=== PATIENT | female | born 1990 | race Caucasian/White ===

== ENCOUNTER 2016-10-02 06:37 | Emergency (ER) | payer OTHER ==
[2016-10-02 07:05] VITALS: BP 114/69; PULSE 103; O2SAT 96
[2016-10-02 07:18] LABS: BASOPHIL % 0.2 % (0.0-0.4); Eosinophil % 0.5 % (0.00-5.0); Granulocytes % 64.1 % (36.0-66.0); Lymphocytes % 24.2 % (24.0-44.0); Mean Corpuscular Hemoglobin 29.3 pg (26-32); Mean Platelet Volume 10.9 fl (6-9.5); Platelet Count 325 K/mm3 (150-450); Red Blood Count 4.67 M/mm3 (4.1-5.4); Red Cell Distribution Width 13.5 % (11.5-14.0); White Blood Count 12.7 K/mm3 (4.0-10.5)
[2016-10-02 07:19] LABS: Collection Type CCMS; Glucose NEGATIVE (NEGATIVE); Leukocyte Esterase TRACE (NEGATIVE)
[2016-10-02 07:20] LABS: Bilirubin NEGATIVE (NEGATIVE); Blood NEGATIVE Ery/ul (0-5); COMPLETE URINE MICROSCOPIC? YES
[2016-10-02 07:28] LABS: ADD URINE CULTURE? YES (NO); Bacteria MODERATE /HPF (NEGATIVE); Epithelial Cells MANY /HPF (FEW)
[2016-10-02 07:30] LABS: ALBUMIN 3.9 g/dL (3.4-5.0); ALKALINE PHOSPHATASE 77 U/L (46-116); ANION GAP 13.8 MEQ/L (5-15); BLOOD UREA NITROGEN 12 mg/dL (9-20); CHLORIDE 105 mEq/L (98-107); Carbon Dioxide 27.3 mEq/L (21-32); Glucose 105 MG/DL (70-110); Potassium 3.7 mEq/L (3.5-5.1); SGOT/AST 18 U/L (15-37); SGPT/ALT 22 U/L (12-78); SODIUM 142 mEq/L (136-145); Total Protein 7.9 gm/dL (6.4-8.2)
[2016-10-02] MEDS ORDERED: Pepcid 20 MG VIAL IV ONE ×2 (07:34→07:37)
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
== END 2016-10-02 07:55 | disposition home or self-care (01) ==
LOC: ED 06:37
DX: R10.9 Unspecified abdominal pain (principal); Y04.0XXA Assault by unarmed brawl or fight, initial encounter; Z32.02 Encounter for pregnancy test, result negative
CPT/HCPCS: 36000; 36415; 80053; 80307; 81000; 84703; 85025; 87086; 96374; 99284; G0481

== ENCOUNTER 2016-11-30 19:23 | Emergency (ER) | payer OTHER ==
--- NOTE | 2016-11-30 20:00 | ERPHSYRPT ---
- History of Present Illness Time Seen by Provider: 11/30/16 19:38 Historian: patient, family (MOM) Exam Limitations: no limitations Patient Subjective Stated Complaint: Pt sts vaginal bleeding since last night. Sts some red and mostly brown bleeding. Pt sts bleeding worse today. Has not had to use pads. Pt sts pain in upper stomach. Pt reports she is approx 9 weeks . LMP 10/22/16. Triage Nursing Assessment: Pt alert, oriented, answers all questions appropriately. Skin pink, warm, dry. Resps non-labored. Pt ambulatory to treatment room. Steady gait noted. Physician History: SINCE LAST NIGHT PT HAS HAD MILD VAGINAL BLEEDING WITH DIAPHORESIS. PT HAS HAD MID ABDOMINAL CRAMPING FOR THE PAST 5 DAYS. PT ALSO C/O INTERMITTENT SHORTNESS OF AIR, CHEST PAIN AND HEADACHES FOR THE PAST 2 YEARS. PT STATES SHE IS 8 WEEKS 5 DAYS ; DENIES PREVIOUS . Allergies/Adverse Reactions: amoxicillin [From Augmentin] Allergy (Verified 11/30/16 21:05) Cephalosporins Allergy (Verified 11/30/16 21:05) clavulanic acid [From Augmentin] Allergy (Verified 11/30/16 21:05) codeine Allergy (Verified 11/30/16 21:05) Iodinated Contrast- Oral and IV Dye [Iodinated Contrast Media - IV Dye] Allergy (Verified 11/30/16 21:05) strawberry Allergy (Verified 11/30/16 21:05) sulfamethoxazole [From Bactrim] Allergy (Verified 11/30/16 21:05) trimethoprim [From Bactrim] Allergy (Verified 11/30/16 21:05) cefaclor [From Ceclor] Adverse Reaction (Verified 11/30/16 21:05) ciprofloxacin [From Cipro] Adverse Reaction (Verified 11/30/16 21:05) Hx Tetanus, Diphtheria Vaccination/Date Given: Yes Hx Influenza Vaccination/Date Given: Yes Hx Pneumococcal Vaccination/Date Given: No Immunizations Up to Date: Yes - Review of Systems Respiratory: Dyspnea Cardiac: Chest Pain Abdominal/Gastrointestinal: Abdominal Pain Genitourinary Symptoms: , Vaginal Bleeding Neurological: Headache Endocrine: Excessive Sweating All Other Systems: Reviewed and Negative - Past Medical History Pertinent Past Medical History: Yes Psycho-Social History: Depression Other Medical History: personality disorder. mild MR - Past Surgical History Past Surgical History: Yes Other Surgical History: toes bilat. explor lap - Social History Smoking Status: Never smoker Exposure to second hand smoke: No Drug Use: none Patient Lives Alone: No - Nursing Vital Signs Nursing Vital Signs: Initial Vital Signs Pulse Rate 97 H 11/30/16 19:38 Respiratory Rate 18 11/30/16 19:38 Blood Pressure 132/67 11/30/16 19:38 O2 Sat by Pulse Oximetry 96 11/30/16 19:38 Pain Scale Pain Intensity 4 - Physical Exam General Appearance: alert Eye Exam: PERRL/EOMI Ears, Nose, Throat Exam: TMs normal, pharynx normal, moist mucous membranes Neck Exam: normal inspection Respiratory Exam: lungs clear Cardiovascular Exam: normal heart sounds Gastrointestinal/Abdomen Exam: soft, normal bowel sounds Back Exam: normal range of motion Extremity Exam: normal inspection Neurologic Exam: alert, cooperative Skin Exam: warm, dry SpO2 Interpretation: normal SpO2: 96 Oxygen Delivery: Room Air - Course Nursing assessment & vital signs reviewed: Yes - Radiology Ultrasound Exam OB Ultrasound: Other (TECH REPORT: 8 WEEKS; NO HEART BEAT.) Ordered Tests: Active Orders 24 hr Category Date Time Status Clean Catch Urine Specimen STAT Care 11/30/16 20:22 Active OB <14 WKS 1ST GESTATION [US] Stat Exams 11/30/16 21:09 Taken AMYLASE Stat Lab 11/30/16 20:05 Completed CBC W DIFF Stat Lab 11/30/16 20:05 Completed CMP Stat Lab 11/30/16 20:05 Completed CULTURE,URINE Stat Lab 11/30/16 20:05 Received HCG, Quantitative (Inhouse) Stat Lab 11/30/16 20:05 Completed LIPASE Stat Lab 11/30/16 20:05 Completed MAG [MAGNESIUM] Stat Lab 11/30/16 20:05 Completed PROTIME WITH INR Stat Lab 11/30/16 20:05 Completed PTT Stat Lab 11/30/16 20:05 Completed UA W/ MICROSCOPIC Stat Lab 11/30/16 20:05 Completed Urine Triage Profile Stat Lab 11/30/16 20:05 Completed Medication Summary Generic Name Dose Route Start Last Admin Trade Name Freq PRN Reason Stop Dose Admin Magnesium Oxide 400 mg 11/30/16 22:00 11/30/16 21:18 Mag-Ox 400 PO 12/30/16 21:59 400 mg BID SHANE Administration Discontinued Medications Generic Name Dose Route Start Last Admin Trade Name Freq PRN Reason Stop Dose Admin Nitrofurantoin Macrocrystals 100 mg 11/30/16 21:09 11/30/16 21:18 Macrobid 100mg Capsule PO 11/30/16 21:10 100 mg STAT ONE Administration Nitrofurantoin Macrocrystals Confirm 11/30/16 21:15 Macrobid 100mg Capsule Administered 11/30/16 21:16 Dose 100 mg .ROUTE .STK-MED ONE Lab/Rad Data: Laboratory Result Diagrams 11/30/16 20:05 11/30/16 20:05 Laboratory Results 11/30/16 11/30/16 11/30/16 Range/Units 20:05 20:05 20:05 WBC (4.0-10.5) K/mm3 RBC (4.1-5.4) M/mm3 Hgb (12.0-16.0) gm/dl Hct (35-47) % MCV (78-100) fl MCH (26-32) pg MCHC (32-36) g/dl RDW (11.5-14.0) % Plt Count (150-450) K/mm3 MPV (6-9.5) fl Gran % (36.0-66.0) % Lymphocytes % (24.0-44.0) % Monocytes % (0.0-12.0) % Eosinophils % (0.00-5.0) % Basophils % (0.0-0.4) % Basophils # (0-0.4) INR 1.08 (0.8-3.0) APTT 36.1 (25.3-37.0) SECONDS Sodium (136-145) mEq/L Potassium (3.5-5.1) mEq/L Chloride (98-107) mEq/L Carbon Dioxide (21-32) mEq/L Anion Gap (5-15) MEQ/L BUN (9-20) mg/dL Creatinine (0.55-1.30) mg/dl Estimated GFR ML/MIN Glucose (70-110) MG/DL Calcium (8.5-10.1) mg/dL Magnesium 1.7 L (1.8-2.4) mg/dL Total Bilirubin (0.2-1.0) mg/dL AST (15-37) U/L ALT (12-78) U/L Alkaline Phosphatase (46-116) U/L Serum Total Protein (6.4-8.2) gm/dL Albumin (3.4-5.0) g/dL Amylase (25-115) U/L Lipase (73-393) U/L Beta HCG, Quant 6033 H (0-6) IU/L Ur Collection Type Urine Color (YELLOW) Urine Appearance (CLEAR) Urine pH (5-6) Ur Specific [place] (1.005-1.025) Urine Protein (Negative) Urine Ketones (NEGATIVE) Urine Blood (0-5) Peter/ul Urine Nitrite (NEGATIVE) Urine Bilirubin (NEGATIVE) Urine Urobilinogen (0-1) mg/dL Ur Leukocyte Esterase (NEGATIVE) Urine Microscopic RBC (0-2) /HPF Urine Microscopic WBC (0-5) /HPF Ur Epithelial Cells (FEW) /HPF Urine Bacteria (NEGATIVE) /HPF Urine Mucus (NEGATIVE) /HPF Urine Glucose (NEGATIVE) mg/dL Urine Opiates Level NEG. (NEGATIVE) Ur Methadone NEG. (NEGATIVE) Urine Barbiturates NEG. (NEGATIVE) Ur Phencyclidine (PCP) NEG. (NEGATIVE) Urine Amphetamine NEG. (NEGATIVE) U Benzodiazepine Level NEG. (NEGATIVE) Urine Cocaine NEG. (NEGATIVE) Urine Marijuana (THC) NEG. (NEGATIVE) Specimen Received 11/30/16 11/30/16 11/30/16 Range/Units 20:05 20:05 20:05 WBC 10.3 (4.0-10.5) K/mm3 RBC 4.62 (4.1-5.4) M/mm3 Hgb 13.3 (12.0-16.0) gm/dl Hct 39.6 (35-47) % MCV 85.7 (78-100) fl MCH 28.8 (26-32) pg MCHC 33.6 (32-36) g/dl RDW 13.4 (11.5-14.0) % Plt Count 274 (150-450) K/mm3 MPV 10.7 H (6-9.5) fl Gran % 70.0 H (36.0-66.0) % Lymphocytes % 20.3 L (24.0-44.0) % Monocytes % 7.7 (0.0-12.0) % Eosinophils % 1.7 (0.00-5.0) % Basophils % 0.3 (0.0-0.4) % Basophils # 0.03 (0-0.4) INR (0.8-3.0) APTT (25.3-37.0) SECONDS Sodium 142 (136-145) mEq/L Potassium 3.9 (3.5-5.1) mEq/L Chloride 105 (98-107) mEq/L Carbon Dioxide 26.9 (21-32) mEq/L Anion Gap 13.6 (5-15) MEQ/L BUN 8 L (9-20) mg/dL Creatinine 0.53 L (0.55-1.30) mg/dl Estimated GFR > 60 ML/MIN Glucose 91 (70-110) MG/DL Calcium 9.4 (8.5-10.1) mg/dL Magnesium (1.8-2.4) mg/dL Total Bilirubin 0.20 (0.2-1.0) mg/dL AST 29 (15-37) U/L ALT 29 (12-78) U/L Alkaline Phosphatase 80 (46-116) U/L Serum Total Protein 7.4 (6.4-8.2) gm/dL Albumin 3.5 (3.4-5.0) g/dL Amylase 40 (25-115) U/L Lipase 82 (73-393) U/L Beta HCG, Quant (0-6) IU/L Ur Collection Type VOID Urine Color YELLOW (YELLOW) Urine Appearance CLOUDY (CLEAR) Urine pH 6.0 (5-6) Ur Specific [place] 1.025 (1.005-1.025) Urine Protein TRACE (Negative) Urine Ketones NEGATIVE (NEGATIVE) Urine Blood 250 (0-5) Peter/ul Urine Nitrite NEGATIVE (NEGATIVE) Urine Bilirubin NEGATIVE (NEGATIVE) Urine Urobilinogen NORMAL (0-1) mg/dL Ur Leukocyte Esterase 2+ (NEGATIVE) Urine Microscopic RBC 5-10 (0-2) /HPF Urine Microscopic WBC 50-100 (0-5) /HPF Ur Epithelial Cells MODERATE (FEW) /HPF Urine Bacteria MODERATE (NEGATIVE) /HPF Urine Mucus MODERATE (NEGATIVE) /HPF Urine Glucose NEGATIVE (NEGATIVE) mg/dL Urine Opiates Level (NEGATIVE) Ur Methadone (NEGATIVE) Urine Barbiturates (NEGATIVE) Ur Phencyclidine (PCP) (NEGATIVE) Urine Amphetamine (NEGATIVE) U Benzodiazepine Level (NEGATIVE) Urine Cocaine (NEGATIVE) Urine Marijuana (THC) (NEGATIVE) Specimen Received 11/30/162029 - Departure Time of Disposition: 22:16 Departure Disposition: Home Clinical Impression: DEMISE, MILD HYPOMAGNESEMIA, UTI Condition: Stable Critical Care Time: No Referrals: JASON STANFORD, CRAIG [Primary Care Provider] - Instructions: Threatened , Urinary Tract Infection (UTI) Additional Instructions: FOLLOW UP WITH OB DOCTOR TOMORROW. STRICT BED REST. Prescriptions: Nitrofurantoin Macro 100 mg [Macrobid 100MG Capsule] 100 mg PO BID #20 capsule
[2016-11-30 20:14] LABS: BASOPHIL % 0.3 % (0.0-0.4); Eosinophil % 1.7 % (0.00-5.0); Lymphocytes % 20.3 % (24.0-44.0); Mean Cell Volume 85.7 fl (78-100); Mean Corpuscular Hemoglobin 28.8 pg (26-32); Mean Platelet Volume 10.7 fl (6-9.5); Monocytes % 7.7 % (0.0-12.0); Platelet Count 274 K/mm3 (150-450); Red Blood Count 4.62 M/mm3 (4.1-5.4); Red Cell Distribution Width 13.4 % (11.5-14.0); White Blood Count 10.3 K/mm3 (4.0-10.5)
[2016-11-30 20:34] LABS: INR 1.08 (0.8-3.0)
[2016-11-30 20:36] LABS: PTT 36.1 SECONDS (25.3-37.0)
[2016-11-30 20:42] LABS: ALBUMIN 3.5 g/dL (3.4-5.0); ALKALINE PHOSPHATASE 80 U/L (46-116); ANION GAP 13.6 MEQ/L (5-15); BLOOD UREA NITROGEN 8 mg/dL (9-20); CHLORIDE 105 mEq/L (98-107); Carbon Dioxide 26.9 mEq/L (21-32); Glucose 91 MG/DL (70-110); LIPASE 82 U/L (73-393); Potassium 3.9 mEq/L (3.5-5.1); SGOT/AST 29 U/L (15-37); SODIUM 142 mEq/L (136-145); Total Protein 7.4 gm/dL (6.4-8.2)
[2016-11-30 20:55] LABS: SGPT/ALT 29 U/L (12-78)
[2016-11-30 20:56] LABS: Bilirubin NEGATIVE (NEGATIVE); Blood 250 Ery/ul (0-5); COMPLETE URINE MICROSCOPIC? YES; Collection Type VOID; Glucose NEGATIVE (NEGATIVE); Leukocyte Esterase 2+ (NEGATIVE); Mucus MODERATE /HPF (NEGATIVE)
[2016-11-30 20:57] LABS: ADD URINE CULTURE? YES (NO); Bacteria MODERATE /HPF (NEGATIVE); Epithelial Cells MODERATE /HPF (FEW); WBC 50-100 /HPF (0-5)
[2016-11-30 21:04] LABS: MAGNESIUM 1.7 mg/dL (1.8-2.4)
[2016-11-30] MEDS ORDERED: Macrobid 100MG Capsule PO ONE (21:09)
[2016-11-30] MEDS ORDERED: MAG-OX 400 ONE (21:15)
[2016-11-30] MEDS ORDERED: Macrobid 100MG Capsule ONE (21:15)
[2016-11-30] MEDS ORDERED: MAG-OX 400 PO SCH (22:00)
[2016-11-30] MEDS ORDERED: KLONOPIN PO ONE ×2 (22:30→22:40)
[2016-11-30 22:48] VITALS: BP 130/83; PULSE 76; O2SAT 98
--- NOTE | 2016-12-01 13:14 | XRAY ---
Exam: OB ultrasound less than 14 weeks from 11/30/2016. Comparison: None from this . Indication: with vaginal bleeding. Findings: Transabdominal sonogram images of the pelvis were obtained. The maternal uterus is anteflexed. A single intrauterine fetus is seen within a normal positioned gestational sac within the upper uterine segment. On some of the images the gestational sac has a mildly irregular contour. The crown-rump length measured 1.64 cm consistent with a gestational age of 8 weeks 0 days. No body motion or cardiac activity were identified. Specifically, no cardiac flash with color imaging or Doppler activity was seen within the region of the anticipated heart. cardiac activity should easily be seen by a gestational age of 8 weeks 0 days. The findings suggest intrauterine demise. Both maternal ovaries are identified and appear of unremarkable size, shape, and echogenicity. Normal Doppler signal is seen within both maternal ovaries. No free fluid is seen within the maternal pelvis. Impression: 1. 8 week 0 day single intrauterine with no body motion or cardiac activity. The findings are consistent with intrauterine demise. 2. Both maternal ovaries appear unremarkable. 3. No free intraperitoneal fluid is seen within the maternal pelvis.
== END 2016-11-30 22:48 | disposition home or self-care (01) ==
LOC: ED 19:23
DX: O02.1 Missed abortion (principal); E83.42 Hypomagnesemia; N39.0 Urinary tract infection, site not specified
CPT/HCPCS: 36415; 76801; 76815; 80053; 80307; 81000; 82150; 83690; 83735; 84702; 85025; 85610; 85730; 87086; 99284; A9270-GY

== ENCOUNTER 2017-11-17 19:45 | Emergency (ER) | payer OTHER ==
[2017-11-17 20:15] VITALS: BP 115/76; O2SAT 98
[2017-11-17] MEDS ORDERED: Bactroban OINTMENT TP ONE (20:29)
--- NOTE | 2017-11-17 20:34 | ERPHSYRPT ---
- History of Present Illness Time Seen by Provider: 11/17/17 20:30 Source: patient Exam Limitations: no limitations Patient Subjective Stated Complaint: pt is alert and oriented. pt is ambulatory. pt comes in with c/o cough, congestion, runny nose, nausea, and diarrhea. pt has a dry cough, states that she feels like she is coughing "something up and can't get it up". pt seems anxious and is talkative. pt bowel sounds present x4. pt states she went to the walk in clinic and they diagnosed her with a URI and was given a prescription for steroids but did not fill them because she "couldn't afford them". pt lung sounds clear bilat a-p throughout. Triage Nursing Assessment: see above Physician History: 27-year-old white female with history of mild mental retardation, anxiety, depression, personality disorder Arrives with complaint of cough congestion runny nose symptoms for a week. She states she has been using an inhaler secondary feeling short of breath. She states she saw a physician in [place] who prescribed steroids however she did not fill these because she could not afford them. She has no fevers. Past medical history includes anxiety, depression, personality disorder, mild mental retardation. Past surgical history includes exploratory laparoscopy EGD Social history occasional alcohol use Timing/Duration: week(s) Severity: moderate (1 week) Modifying Factors: Improves With: nothing Associated Symptoms: shortness of breath, cough, No nausea, No vomiting, No abdominal pain, No heartburn, No diaphoresis, No chills, No chest pain, No fever , No headaches, No loss of appetite, No malaise, No rash, No syncope, No seizure , No weakness (and are relieved to have) Allergies/Adverse Reactions: amoxicillin [From Augmentin] Allergy (Verified 11/30/16 21:05) Cephalosporins Allergy (Verified 11/30/16 21:05) clavulanic acid [From Augmentin] Allergy (Verified 11/30/16 21:05) codeine Allergy (Verified 11/30/16 21:05) Iodinated Contrast- Oral and IV Dye [Iodinated Contrast Media - IV Dye] Allergy (Verified 11/30/16 21:05) strawberry Allergy (Verified 11/30/16 21:05) sulfamethoxazole [From Bactrim] Allergy (Verified 11/30/16 21:05) trimethoprim [From Bactrim] Allergy (Verified 11/30/16 21:05) cefaclor [From Ceclor] Adverse Reaction (Verified 11/30/16 21:05) ciprofloxacin [From Cipro] Adverse Reaction (Verified 11/30/16 21:05) loratadine [From Claritin] Adverse Reaction (Verified 11/17/17 20:16) Home Medications: Clonazepam 1 mg PO BID 11/17/17 [History] Tramadol HCl 50 mg PO 11/17/17 [History] Hx Tetanus, Diphtheria Vaccination/Date Given: No Hx Influenza Vaccination/Date Given: Yes (2016) Hx Pneumococcal Vaccination/Date Given: No Immunizations Up to Date: Yes - Review of Systems Constitutional: No Fever, No Chills Eyes: No Symptoms Ears, Nose, & Throat: No Symptoms Respiratory: Cough, Dyspnea Cardiac: No Chest Pain, No Edema, No Syncope Abdominal/Gastrointestinal: No Abdominal Pain, No Nausea, No Vomiting, No Diarrhea Genitourinary Symptoms: No Symptoms Musculoskeletal: No Back Pain, No Neck Pain Skin: Other (patient with an erythematous area on her nose and upper lip) Neurological: No Dizziness, No Focal Weakness, No Sensory Changes Psychological: No Symptoms Endocrine: No Symptoms All Other Systems: Reviewed and Negative - Past Medical History Pertinent Past Medical History: Yes Psycho-Social History: Anxiety, Depression Other Medical History: personality disorder. mild MR - Past Surgical History Past Surgical History: Yes Neuro Surgical History: No Pertinent History Cardiac: No Pertinent History Respiratory: No Pertinent History Gastrointestinal: No Pertinent History Genitourinary: No Pertinent History Musculoskeletal: No Pertinent History Female Surgical History: No Pertinent History Other Surgical History: toes bilat. explor lap. EGD - Social History Smoking Status: Never smoker Exposure to second hand smoke: Yes Drug Use: none Patient Lives Alone: No - Female History Hx Now: No - Nursing Vital Signs Nursing Vital Signs: Initial Vital Signs Temperature 98.7 F 11/17/17 19:45 Pulse Rate 95 H 11/17/17 19:45 Respiratory Rate 16 11/17/17 19:45 Blood Pressure 115/76 11/17/17 19:45 O2 Sat by Pulse Oximetry 98 11/17/17 19:45 Pain Scale Pain Intensity 6 - Physical Exam General Appearance: no apparent distress Eye Exam: PERRL/EOMI, eyes nml inspection Ears, Nose, Throat Exam: other (erythematous area on her right nose and upper lip) Neck Exam: normal inspection, non-tender, supple, full range of motion Respiratory Exam: normal breath sounds, lungs clear, No respiratory distress Cardiovascular Exam: regular rate/rhythm, normal heart sounds, normal peripheral pulses Gastrointestinal/Abdomen Exam: soft, normal bowel sounds, No tenderness, No mass Back Exam: normal inspection, normal range of motion, No CVA tenderness, No vertebral tenderness Extremity Exam: normal inspection, normal range of motion, pelvis stable Neurologic Exam: alert, oriented x 3, cooperative, 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 nml as tested, normal mood/affect, nml cerebellar function, nml station & gait, sensation nml, No motor deficits Skin Exam: other (erythematous areacon right side of the disal nose and upper lip) Lymphatic Exam: No adenopathy SpO2 Interpretation: normal (98%) SpO2: 98 Oxygen Delivery: Room Air - Course Nursing assessment & vital signs reviewed: Yes - Radiology Exams Chest X-ray Interpretation: Interpreted by me (no acute disease process noted) Ordered Tests: Active Orders 24 hr Category Date Time Status CHEST 1 VIEW (PORTABLE) Stat Exams 11/17/17 20:51 Taken Medication Summary Discontinued Medications Generic Name Dose Route Start Last Admin Trade Name Freq PRN Reason Stop Dose Admin Azithromycin 500 mg 11/17/17 21:15 11/17/17 21:34 Zithromax 250 Mg Tablet PO 11/17/17 21:16 500 mg STAT ONE Administration Azithromycin Confirm 11/17/17 21:24 Zithromax 250 Mg Tablet Administered 11/17/17 21:25 Dose 500 mg .ROUTE .STK-MED ONE Mupirocin 22 gm 11/17/17 20:29 11/17/17 21:05 Bactroban Ointment TP 11/17/17 20:30 22 gm STAT ONE Administration Prednisone 60 mg 11/17/17 21:15 11/17/17 21:34 Deltasone 20 Mg PO 11/17/17 21:16 60 mg STAT ONE Administration Prednisone Confirm 11/17/17 21:24 Deltasone 20 Mg Administered 11/17/17 21:25 Dose 60 mg .ROUTE .STK-MED ONE - Progress Progress: improved Progress Note: 11/17/17 21:16 27-year-old female arrives with complaint of cough for a week nasal congestion she states she has been using an inhaler at home but continues to have cough shortness of breath. Patient appears to be stable here normal vital signs chest is essentially normal. Patient apparently had been prescribed steroids and all night but did not fill them because she could not afford them. On physical examination lungs are clear chest x-ray is unremarkable. Will go ahead and place patient on Zithromax, also tapering dose of prednisone she is continue her inhalers. Patient does have a rash which is suspicious for impetigo on the right side of his nose and upper lip will place her on Bactroban cream. - Departure Time of Disposition: 21:18 Departure Disposition: Home Clinical Impression: Bronchitis, Impetigo URI (upper respiratory infection) Qualifiers: URI type: unspecified viral URI Qualified Code(s): J06.9 - Acute upper respiratory infection, unspecified Condition: Fair Critical Care Time: No Referrals: JASON STANFORD NP [Primary Care Provider] - Instructions: Viral Upper Respiratory Infection, Adult (DC), Acute Bronchitis, Impetigo Additional Instructions: Return home. Zithromax and prednisone as prescribed. Continue your inhaler at home. Bactroban ointment to lesion on your nose and upper lip 3 times a day for 5 days. Follow-up with your family doctor. Return for acute distress or for severe symptoms.
[2017-11-17] MEDS ORDERED: DELTASONE 20 MG PO ONE (21:15)
[2017-11-17] MEDS ORDERED: Zithromax 250 MG TABLET PO ONE (21:15)
[2017-11-17] MEDS ORDERED: DELTASONE 20 MG ONE (21:24)
[2017-11-17] MEDS ORDERED: Zithromax 250 MG TABLET ONE (21:24)
[2017-11-17 21:45] VITALS: PULSE 90
--- NOTE | 2017-11-18 09:00 | XRAY ---
Indication: Cough and congestion. Comparison: July 01, 2008. Portable chest again demonstrates normal heart, lungs, and bony thorax.
== END 2017-11-17 21:46 | disposition home or self-care (01) ==
LOC: ED 19:45
DX: J40 Bronchitis, not specified as acute or chronic (principal); J06.9 Acute upper respiratory infection, unspecified; L01.00 Impetigo, unspecified; Z79.899 Other long term (current) drug therapy
CPT/HCPCS: 71045; 99283; A9270-GY

== ENCOUNTER 2018-02-17 18:44 | Emergency (ER) | payer OTHER ==
[2018-02-17 19:03] VITALS: BP 127/98
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
[2018-02-17 19:55] VITALS: PULSE 77; O2SAT 98
== END 2018-02-17 19:35 | disposition home or self-care (01) ==
LOC: ED 18:44
DX: S61.412A Laceration without foreign body of left hand, initial encounter (principal); Z79.899 Other long term (current) drug therapy; W26.0XXA Contact with knife, initial encounter; Y93.89 Activity, other specified
CPT/HCPCS: 12001; 99284